=== PATIENT | male | born 1935 | race Caucasian/White ===

== ENCOUNTER 2017-05-04 14:57 | Emergency (ER) | payer OTHER, BC ==
[~2017-05-04] VITALS: Ht 200.7 cm; Wt 72.5 kg
[~2017-05-04 14:57] MED LIST: ATORVASTATIN CA40 MG PO; AVODART0.5 MG PO; COSOPT EYE DROPS5 ML BOTH EYES; LO-DOSE ASPIRIN81 M2 PO; PERCOCET 5/31 TABLET PO; TAMSULOSIN HCL0.4 MG PO
[2017-05-04 17:36] VITALS: BP 132/90
== END 2017-05-04 17:36 | disposition home or self-care (01) ==
LOC: EME 14:57
DX: S00.03XA Contusion of scalp, initial encounter (principal); W07.XXXA Fall from chair, initial encounter; Y93.89 Activity, other specified; E78.5 Hyperlipidemia, unspecified; Z79.82 Long term (current) use of aspirin
CPT/HCPCS: 70450; 99281; 99284